=== PATIENT | female | born 1965 | race Caucasian/White ===

== ENCOUNTER → 2018-04-14 | Outpatient (CLI) | payer BC | END | disposition home or self-care (01) | LOC: CDC 14:47 | DX: Z01.810 Encounter for preprocedural cardiovascular examination (principal); S83.232D Complex tear of medial meniscus, current injury, left knee, subsequent encounter; M25.462 Effusion, left knee; M17.12 Unilateral primary osteoarthritis, left knee | CPT/HCPCS: 93000 ==